=== PATIENT | male | born 1980 | race Hispanic/Latino ===

== ENCOUNTER 2016-07-21 07:00 | Day surgery (SDC) | payer OTHER ==
[2016-07-20 15:21] VITALS: BMI 23.6
--- NOTE | 2016-07-21 07:25 | CP.SDSHP ---
Same Day Surgery H & P - History Proposed Procedure: Left foot radiofrequency ablation and platlet rich plasma injection. Pre-Op Diagnosis: Left foot plantar fascititis and neuritis - Previous Medical/Surgical History Pain: 3. Previous Surgical History: L-for PRP injections x1, Repeair of deviated septum, Tonsilectomy, - Allergies Allergies: Allergies shellfish derived Adverse Reaction (Verified 07/20/16 15:21) ANAPHYLAXIS - Current Medications Current Medications: None - Physical Exam General Appearance: Well, non acute distress, good spirits. Mental Status: Alert & Oriented x3 Neuro: WNL Heart: WNL Lungs: WNL GI: WNL - {Optional Preform as Required} Integument: WNL Ortho: Other (Trigger point pain on palpation along medial plantar fascial band , increased with Yoseph's Maneuver.) - Impression Impression: Pt was seen and examined in SDS. Pt NPO status was confirmed. All Pre-op testing and clearance was in the chart. Pt has exhausted all conservative treatment at this time and is opting for surgical intervention. Pt was explained procedure and post-operative course. All pt's questions were answered to satisfaction. No guarantees were made. Pt understands all risks, benefits and complications of procedure. Pt will follow-up with Dr. Raymond. Pt. Evaluated Today:Candidate for Anesthesia & Procedure: Yes - Date & Time Date: 07/21/16 Time: 07:25 Short Stay Discharge - Short Stay Discharge Admitting Diagnosis/Reason for Visit: H79.2 M72.2 Referrals: Kayden Raymond DPM [Primary Care Provider] - Additional Instructions (Diet, Activity): Patient in good/stable condition for discharge home. Pt to resume medications per medical reconciliation. Resume regular diet. Please keep dressing clean, dry, & intact to surgical site, use plastic bag over bandage for showering, wear post op shoe at all times when ambulating, call clinic if you see signs of infection (redness, swelling, malodor), please make an appointment to see Dr. Raymond in office within 1 week for post-op check. Progress Note/Discharge Note with Instructions: - Patient evaluated bedside in recovery s/p surgical procedure. - After surgical procedure patient in NAD - (+) Void, (+) Appetite - Capillary refill time <3s and NVSI intact. - Patient denies complaints at this time - Post operative instructions and plan of care explained to patient at length. - Pt. acknowledges understanding. - Patient stable for DC per podiatric surgery
[2016-07-21] MEDS ORDERED: Lactated Ringer's 1,000 ML IV ONE (08:01)
[2016-07-21] MEDS ORDERED: Bupivacaine 0.5% Inj(30mL) ONE (09:09)
[2016-07-21] MEDS ORDERED: Lidocaine 1% Inj (20ml) ONE (09:09)
[2016-07-21 10:09] VITALS: RESP 18
--- NOTE | 2016-07-21 10:10 | PCM.SURG1 ---
Surgeon's Initial Post Op Note - Surgeon's Notes Surgeon: Dr. Kayden Raymond, DPM Water Meter Installer: Dr. Allyssa Dickinson, PGY1 Type of Anesthesia: Local Anesthesia Administered By: Dr. Raymond Pre-Operative Diagnosis: Left foot plantar fascitis and neuritis Operative Findings: See dictation. I: 5 cc's of Platlet rich plasma Post-Operative Diagnosis: Same as pre-operatrive Operation Performed: Left foot radiofrequency ablation & paltlet rich plasma injection Specimen/Specimens Removed: none Estimated Blood Loss: EBL {In ML}: 0 Blood Products Given: N/A Drains Used: No Drains Post-Op Condition: Good Date of Surgery/Procedure: 07/21/16 Time of Surgery/Procedure: 09:40
[2016-07-21 10:19] VITALS: BP 107/61; PULSE 68; TEMP 98.4
[2016-07-21 10:20] VITALS: O2SAT 98
--- NOTE | 2016-07-22 19:24 | OP ---
PROCEDURE DATE: 07/21/2016 PRIMARY SURGEON: Kayden Raymond DPM. OIL REFINER: Dr. Allyssa Dickinson, PGY-1. ANESTHESIA: Local anesthetic. ANESTHESIOLOGIST: None. PREOPERATIVE DIAGNOSES: 1. Chronic heel pain to left foot. 2. Bal's neuritis. POSTOPERATIVE DIAGNOSES: 1. Chronic heel pain to left foot. 2. Bal's neuritis. PROCEDURES: 1. Radiofrequency nerve ablation with neurolysis of nerves of left heel. 2. Platelet rich plasma injection to left foot. INDICATIONS: The patient is a 35-year-old male with the above-mentioned diagnoses. The patient has exhausted all conservative treatment options, including shoe gear modification, orthotics, and steroid injections. The patient now requests surgical intervention. The patient signed a consent after careful explanation of risks, benefits, complications, and alternatives. No guarantees were neither given nor implied. PREPARATION: The patient was brought to the operating room and placed on the operating room table in the supine position. Attention was then directed to the left foot, where a total of 3 mL of 0.5% Marcaine plain was injected into the patient's left heel in a local block-type fashion. Once local anesthesia was confirmed to have been achieved, the patient's left foot was then prepped and draped in the usual sterile manner and the procedure began. DESCRIPTION OF PROCEDURE: 1. Three points were marked on the patient's left heel, approximately 0.5 cm from one another along the patient's most painful areas. At this time, two 22- gauge inflated radiofrequency needles were inserted percutaneously over the marked points for the target tissue with impedance ranging from 500 to 600 ohms on the machine. Tips of the needles were used to palpate the target tissue and were slightly pulled back. At this time, the radiofrequency ablations were inserted into the radiofrequency needle. Power of the radiofrequency was then gradually increased to the Gustavo stimulation mode. The foot was then monitored for any signs of fasciculations of the forefoot. Once we were assured that the branch of the nerve identified was not a motor neuron/nerve, radiofrequency unit was then set to lesioning mode, and lesioning of the nerve was performed for a total of 90 seconds at 90 degrees Celsius. This procedure was repeated for another 2 points of the plantar heel in the same manner mentioned above. 2. At this time, a total of 5 mL of platelet rich plasma was injected into the left heel, localized to the area of the medial calcaneal tubercle and medial fascial band. The area was then cleansed and dressed with 4 x 4 gauze, cast padding, and Coban. POSTOPERATIVE CONDITION: The patient tolerated the anesthesia and procedure well and was escorted to the recovery room with vital signs stable and neurovascular status intact to the left foot. FOLLOWUP: The patient will follow up with Dr. Raymond on an outpatient basis. Allyssa Dickinson DPM Kayden Raymond DPM cc: [id number] TT: 07/22/2016 19:23:40 vee SCHULER
== END 2016-07-21 11:06 | disposition home or self-care (01) ==
LOC: H.OPSURG 07:00
PROVIDERS: ATTEND Podiatrist Foot & Ankle Surgery
DX: M72.2 Plantar fascial fibromatosis (principal)
CPT/HCPCS: 0232T; 64640